=== PATIENT | female | born 1960 | race Caucasian/White ===

== ENCOUNTER 2024-12-18 06:44 | Day surgery (SDC) | payer OTHER ==
[~2024-12-18] VITALS: Ht 167.6 cm; Wt 86.4 kg
[~2024-12-18 06:44] MED LIST: CYCLOPENTOLATE HCL 1% 2 ML OPHTHALMIC SOLUTION ONE; ESCI-8 PO; KETOROLAC TROMETHAMINE 0.5% 5 ML OPHTHALMIC SOLUTION ONE; LOSA-382 PO; MOXIFLOXACIN HCL 0.5% 3 ML OPHTHALMIC SOLUTION ONE; PHENYLEPHRINE HCL 2.5% 2 ML OPHTHALMIC SOLUTION ONE; PrednisoLONE ACETATE 1% 5 ML OPHTHALMIC SUSPENSION ONE; RINGERS SOLUTION,LACTATED 500 ML IV ONE; TETRACAINE HCL/PF 0.5% 4 ML OPHTHALMIC SOLUTION ONE; TIRZ2.5P SQ; TRAZ-252 PO; TROPICAMIDE 1% 2 ML OPHTHALMIC SOLUTION ONE
[2024-12-18] MEDS: RINGERS SOLUTION,LACTATED 500 ML IV ONE (07:32)
[2024-12-18] MEDS: PROPARACAINE HCL 0.5% 15 ML OPHTHALMIC SOLUTION OS ONE (07:33)
[2024-12-18] MEDS: KETOROLAC TROMETHAMINE 0.5% 5 ML OPHTHALMIC SOLUTION OS SCH (07:33)
[2024-12-18] MEDS: CYCLOPENTOLATE HCL 1% 2 ML OPHTHALMIC SOLUTION OS SCH (07:33)
[2024-12-18] MEDS: TETRACAINE HCL/PF 0.5% 4 ML OPHTHALMIC SOLUTION OS ONE (07:33)
[2024-12-18] MEDS: TROPICAMIDE 1% 2 ML OPHTHALMIC SOLUTION OS SCH (07:33)
[2024-12-18] MEDS: MOXIFLOXACIN HCL 0.5% 3 ML OPHTHALMIC SOLUTION OS SCH (07:33)
[2024-12-18] MEDS: PHENYLEPHRINE HCL 2.5% 2 ML OPHTHALMIC SOLUTION OS SCH (07:33)
[2024-12-18] MEDS: TETRACAINE HCL/PF 0.5% 4 ML OPHTHALMIC SOLUTION OS SCH (07:34)
[2024-12-18] MEDS: POVIDONE-IODINE 5% 30 ML OPHTHALMIC SOLUTION ONE (09:25)
[2024-12-18 09:26] LABS: GLUCOMETER DEV NAME(LOC) SDS.; GLUCOSE,POINT OF CARE 135 MG/DL (70-110)
[2024-12-18] MEDS: LIDOCAINE/PF 1% 2 ML VIAL ONE (09:30)
[2024-12-18] MEDS: BALANCED SALT 15 ML OPHTHALMIC IRRIG.SOLN ONE (09:30)
[2024-12-18] MEDS: EPINEPHrine 1:1,000 [1 MG/ML] VIAL ONE (09:30)
[2024-12-18] MEDS: NEOMYCIN/POLYMYXIN B/DEXAMETH 3.5 GM OPHTHALMIC OINTMENT ONE (09:37)
[2024-12-18] MEDS ORDERED: FentaNYL CITRATE PF 100 MCG/2 ML VIAL ONE (12:00)
[2024-12-18] MEDS ORDERED: MIDAZOLAM HCL 2 MG/2 ML VIAL ONE (12:00)
== END 2024-12-18 10:40 | disposition home or self-care (01) ==
LOC: SURGERY 06:44
PROVIDERS: ATTEND Ophthalmology
DX: E11.36 Type 2 diabetes mellitus with diabetic cataract (principal); H25.12 Age-related nuclear cataract, left eye; I10 Essential (primary) hypertension; F17.210 Nicotine dependence, cigarettes, uncomplicated; G47.00 Insomnia, unspecified; Z98.890 Other specified postprocedural states; Z90.49 Acquired absence of other specified parts of digestive tract; Z79.899 Other long term (current) drug therapy
CPT/HCPCS: 66984; 82962; J0171; J3010; J3490; J2250; J7120; V2632